=== PATIENT | female | born 1955 | race Caucasian/White ===

== ENCOUNTER 2017-11-05 13:00 | Emergency (ER) | payer BC ==
[2017-11-05 13:57] VITALS: BP 109/59
--- NOTE | 2017-11-05 14:03 | UC ---
Lower Extremity/Ankle HPI - HPI Summary HPI Summary: left foot pain x 2 hrs s/p fall 2 hrs ago, injury the the left foot + pain and swelling lateral aspect of the left foot + bruising - History of Current Complaint Chief Complaint: UCLowerExtremity Stated Complaint: LEFT FOOT INJURY Time Seen by Provider: 11/05/17 13:47 Hx Obtained From: Patient Onset/Duration: Sudden Onset, Lasting Hours - 2, Still Present Severity Initially: Moderate Severity Currently: Moderate Aggravating Factor(s): Standing, Ambulation Alleviating Factor(s): Rest, Elevation Able to Bear Weight: Yes - Allergies/Home Medications Allergies/Adverse Reactions: Allergies Allergy/AdvReac Type Severity Reaction Status Date / Time No Known Allergies Allergy Verified 11/05/17 13:50 Home Medications: Home Medications Naltrexone (Bulk) [Naltrexone] 3 mg PO DAILY 11/05/17 [History Confirmed ] PMH/Surg Hx/FS Hx/Imm Hx Endocrine History: Hypothyroidism - Surgical History Surgical History: None - Family History Known Family History: Negative: Blood Disorder - Social History Alcohol Use: None Substance Use Type: None Smoking Status (MU): Never Smoked Tobacco Review of Systems Constitutional: Negative Skin: Negative Eyes: Negative ENT: Negative Respiratory: Negative Musculoskeletal: Other: - left foot pain Is Patient Immunocompromised?: No All Other Systems Reviewed And Are Negative: Yes Physical Exam Triage Information Reviewed: Yes Appearance: Well-Appearing, No Pain Distress, Well-Nourished Vital Signs: Initial Vital Signs Temp 97.8 F 11/05/17 13:52 Pulse 67 11/05/17 13:52 Resp 20 11/05/17 13:52 BP 109/59 11/05/17 13:52 Vital Signs Reviewed: Yes Eyes: Positive: Conjunctiva Clear ENT: Positive: Normal ENT inspection, Hearing grossly normal, Pharynx normal Neck: Positive: Supple, Nontender, No Lymphadenopathy Respiratory: Positive: Chest non-tender, Lungs clear, Normal breath sounds Cardiovascular: Positive: RRR, No Murmur, Pulses Normal Musculoskeletal: Positive: Other: - left foot : + swelling and ecchymosis 5th metatarsal , + tenderness 5th metatarsal normal left ankle Neurological Exam: Normal Diagnostics - Laboratory Diagnostic Studies Completed/Ordered: left foot xray : no fracture or dislocation seen Lower Extremity Course/Dx - Differential Dx/Diagnosis Provider Diagnoses: sprain left foot Discharge - Discharge Plan Condition: Stable Disposition: HOME Patient Education Materials: Foot Sprain (ED) Referrals: Laura Ku MD [Primary Care Provider] - 7 Days Additional Instructions: normal left foot xray , no fracture seen cont. with rest, ice, elevation , Ibuprofen as needed for pain follow up with your pcp in one week
--- NOTE | 2017-11-05 14:15 | RAD ---
HISTORY: Left foot injury, lateral left foot pain COMPARISONS: None VIEWS: 3, Frontal, lateral, and oblique views of the left foot FINDINGS: BONE DENSITY: Normal. BONES: There is no displaced fracture. JOINTS: There is no arthropathy. ALIGNMENT: There is no dislocation. SOFT TISSUES: Unremarkable. OTHER FINDINGS: None. IMPRESSION: NO ACUTE OSSEOUS INJURY. IF SYMPTOMS PERSIST, RECOMMEND REPEAT IMAGING.
== END 2017-11-05 14:28 | disposition home or self-care (01) ==
LOC: UCCORT 13:00
DX: S93.602A Unspecified sprain of left foot, initial encounter (principal); W19.XXXA Unspecified fall, initial encounter; Y93.9 Activity, unspecified; Y92.9 Unspecified place or not applicable
CPT/HCPCS: 99211; G0463